=== PATIENT | female | born 1995 | race Caucasian/White ===

== ENCOUNTER 2016-05-19 13:58 | Emergency (ER) | payer OTHER ==
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
--- NOTE | 2016-05-19 15:46 | ED CLINICAL REPORT ---
Clinical Report - Physicians/Mid Levels [facility] [address] [place] [address] 05/19/2016 14:01 [id number] Time Seen: 15:00 May 19 2016. Arrived- By private vehicle. Historian- patient. HISTORY OF PRESENT ILLNESS Chief Complaint: Injury to the left foot. The injury happened just prior to arrival. Occurred at home. (respiratory arrival, wearing socks at home, patient dropped a piece of drywall, the corner of such onto her left foot, near her great toe, previous injuries to the foot and ankle, and surgical history.). REVIEW OF SYSTEMS The patient sustained a laceration. She complains of pain on weight bearing. All systems otherwise negative, except as recorded above. PAST HISTORY The patient has not had a prior injury to the same area. ADDITIONAL NOTES The nursing notes have been reviewed. PHYSICAL EXAM Appearance: Alert. No acute distress. Head: Head atraumatic. CVS: Normal heart rate and rhythm. Heart sounds normal. Respiratory: No respiratory distress. Breath sounds normal. Skin: Skin intact. Skin warm. (no abrasion/ lac). Extremities: Left foot web space: (proximal great toe). Left foot, plantar aspect. No tenderness or swelling. Left dorsal foot: mild tenderness. No swelling. Tip of left great toe: No tenderness or swelling. (no nail injury). No foot injury. No ankle injury. PROGRESS AND PROCEDURES PROCEDURES (post op shoe, left foot). Course of Care: no signs of underlying fx, no rash, ecchymosis, abrasion, good rom, no nail injury. Patient is stable. Patient/family counseled. Disposition: Discharged. CLINICAL IMPRESSION Contusion to the left foot. INSTRUCTIONS Apply ice. Elevate affected areas above chest level. You may walk and bear weight as tolerated. Prescription Medications: Motrin 800 mg tablets: take 1 tablet orally every 8 hours for 5 days, as needed for pain. Dispense fifteen (15). No refill. Substitution is permissible. Follow-up: Follow up with your doctor in three days. (Electronically signed by Ramona Heredia P.AFariba-May 05/19/2016 16:40)
--- NOTE | 2016-05-19 15:46 | ED CLINICAL REPORT ---
Clinical Report - Physicians/Mid Levels [facility] [address] [place] [address] 05/19/2016 14:01 [id number] Time Seen: 15:00 May 19 2016. Arrived- By private vehicle. Historian- patient. HISTORY OF PRESENT ILLNESS Chief Complaint: Injury to the left foot. The injury happened just prior to arrival. Occurred at home. (respiratory arrival, wearing socks at home, patient dropped a piece of drywall, the corner of such onto her left foot, near her great toe, previous injuries to the foot and ankle, and surgical history.). REVIEW OF SYSTEMS The patient sustained a laceration. She complains of pain on weight bearing. All systems otherwise negative, except as recorded above. PAST HISTORY The patient has not had a prior injury to the same area. ADDITIONAL NOTES The nursing notes have been reviewed. PHYSICAL EXAM Appearance: Alert. No acute distress. Head: Head atraumatic. CVS: Normal heart rate and rhythm. Heart sounds normal. Respiratory: No respiratory distress. Breath sounds normal. Skin: Skin intact. Skin warm. (no abrasion/ lac). Extremities: Left foot web space: (proximal great toe). Left foot, plantar aspect. No tenderness or swelling. Left dorsal foot: mild tenderness. No swelling. Tip of left great toe: No tenderness or swelling. (no nail injury). No foot injury. No ankle injury. PROGRESS AND PROCEDURES PROCEDURES (post op shoe, left foot). Course of Care: no signs of underlying fx, no rash, ecchymosis, abrasion, good rom, no nail injury. Patient is stable. Patient/family counseled. Disposition: Discharged. CLINICAL IMPRESSION Contusion to the left foot. INSTRUCTIONS Apply ice. Elevate affected areas above chest level. You may walk and bear weight as tolerated. Prescription Medications: Motrin 800 mg tablets: take 1 tablet orally every 8 hours for 5 days, as needed for pain. Dispense fifteen (15). No refill. Substitution is permissible. Follow-up: Follow up with your doctor in three days. (Electronically signed by Ramona Heredia P.AFariba-May 05/19/2016 16:40)
--- NOTE | 2016-05-19 15:46 | ED ORDER SUMMARY ---
..... Patient: VICENTE ALBARADO OrderSheet [facility] VisitID: [id number] [place] [address] 21y, F Registration Date/Time: 05/19/2016 ORDER SHEET Weight: 104.3 kg (stated) Allergies: No Known Drug Allergy GENERAL ORDERS: Foot 3V Left Urgent (14:59 05/19/2016 Steve P.A.-C) (Ack 15:00 NHouse ER Tech1) (16:00 Israel R.NFariba) Post-op Shoe (15:46 05/19/2016 Steve P.A.-C) (16:30 NHouse ER Tech1) MEDICATION ORDERS: IV FLUIDS: ORDER SHEET NOTES: [Electronically signed by Salena Stout R.N. (16:39 05/19/2016)] [Electronically signed by Ramona Heredia.AFariba-C (16:40 05/19/2016)] [Electronically locked/signed by Salena Stout R.N. (16:39 05/19/2016)]
--- NOTE | 2016-05-19 15:46 | ED ORDER SUMMARY ---
..... Patient: VICENTE ALBARADO OrderSheet [facility] VisitID: [id number] [place] [address] 21y, F Registration Date/Time: 05/19/2016 ORDER SHEET Weight: 104.3 kg (stated) Allergies: No Known Drug Allergy GENERAL ORDERS: Foot 3V Left Urgent (14:59 05/19/2016 Steve P.A.-C) (Ack 15:00 NHouse ER Tech1) (16:00 Israel R.NFariba) Post-op Shoe (15:46 05/19/2016 Steve P.A.-C) (16:30 NHouse ER Tech1) MEDICATION ORDERS: IV FLUIDS: ORDER SHEET NOTES: [Electronically signed by Salena Stout R.N. (16:39 05/19/2016)] [Electronically signed by Ramona Heredia.AFariba-C (16:40 05/19/2016)] [Electronically locked/signed by Salena Stout R.N. (16:39 05/19/2016)]
--- NOTE | 2016-05-19 16:40 | ED MED RECONCILIATION SUMMARY ---
Patient: VICENTE ALBARADO Medication Reconciliation Report [facility] VisitID: [id number] [place] [address] 21y, F Registration Date/Time: 05/19/2016 Weight: 104.3 kg Height/Length: 66 in. BMI: 37.1 ALLERGIES: No Known Drug Allergy The patient's Home Medications are listed below: NONE. The source(s) of the original Home Medication information: Not obtained. The following Medications were given to the patient in the Emergency Department: None. The following Medications were prescribed to the patient: Motrin 800 mg tablets: take 1 tablet orally every 8 hours for 5 days, as needed for pain. Dispense fifteen (15). No refill. Substitution is permissible. -- Ramona Heredia P.A.-C
--- NOTE | 2016-05-19 16:40 | ED MAR SUMMARY ---
..... Medication Administration Record [facility] [address] [place], [place] [id number] Patient: VICENTE ALBARADO Visit ID: [id number] 21y, F Weight: 104.3 kg Height/Length: 66 in BMI: 37.1 ALLERGIES: No Known Drug Allergy
--- NOTE | 2016-05-19 16:40 | ED MED RECONCILIATION SUMMARY ---
Patient: VICENTE ALBARADO Medication Reconciliation Report [facility] VisitID: [id number] [place] [address] 21y, F Registration Date/Time: 05/19/2016 Weight: 104.3 kg Height/Length: 66 in. BMI: 37.1 ALLERGIES: No Known Drug Allergy The patient's Home Medications are listed below: NONE. The source(s) of the original Home Medication information: Not obtained. The following Medications were given to the patient in the Emergency Department: None. The following Medications were prescribed to the patient: Motrin 800 mg tablets: take 1 tablet orally every 8 hours for 5 days, as needed for pain. Dispense fifteen (15). No refill. Substitution is permissible. -- Ramona Heredia P.A.-C
--- NOTE | 2016-05-19 16:40 | ED MAR SUMMARY ---
..... Medication Administration Record [facility] [address] [place], [place] [id number] Patient: VICENTE ALBARADO Visit ID: [id number] 21y, F Weight: 104.3 kg Height/Length: 66 in BMI: 37.1 ALLERGIES: No Known Drug Allergy
--- NOTE | 2016-05-19 16:40 | ED DISCHARGE INSTRUCTIONS ---
Patient: VICENTE ALBARADO General Instructions [facility] VisitID: [id number] [place] [address] 21y, F Registration Date/Time: 05/19/2016 Contusion to the left foot. INSTRUCTIONS Apply ice. Elevate affected areas above chest level. You may walk and bear weight as tolerated. Prescription Medications: Motrin 800 mg tablets: take 1 tablet orally every 8 hours for 5 days, as needed for pain. Dispense fifteen (15). No refill. Substitution is permissible. Follow-up: Follow up with your doctor in three days. ADDITIONAL INFORMATION Contusion: Foot You have a CONTUSION of your foot. This causes local pain, swelling and sometimes bruising. There are no broken bones. This injury may take from a few days to a few weeks to heal. Home Care: 1) Keep your LEG elevated to reduce pain and swelling. This is very important during the first 48 hours. If walking causes pain, stay off the injured leg until you can walk without pain. 2) If CRUTCHES have been advised, do not bear full weight on the injured leg until you can do so without pain. You may return to sports when you are able to hop and run on the injured leg without pain. 3) Make an ice pack (ice cubes in a plastic bag, wrapped in a towel) and apply for 20 minutes every 1-2 hours the first day. Continue this 3-4 times a day until the swelling goes down. 4) You may use acetaminophen (Tylenol) or ibuprofen (Motrin, Advil) to control pain, unless another pain medicine was prescribed. [ NOTE : If you have chronic liver or kidney disease or ever had a stomach ulcer or GI bleeding, talk with your doctor before using these medicines.] Follow Up with your doctor or this facility if you are not starting to improve within the next THREE days. [NOTE: If X-rays were taken, they will be reviewed by a radiologist. You will be notified of any new findings that may affect your care.] Get Prompt Medical Attention if any of the following occur: -- Pain or swelling increases -- Toes become cold, blue, numb or tingly -- Redness, warmth or drainage from the skin You have been given the following additional information: Contusion, Foot You may walk and bear weight as tolerated. (Electronically signed by Ramona Heredia P.A.-C 05/19/2016 16:40)
== END 2016-05-19 16:39 | disposition home or self-care (01) ==
LOC: ED SRH 13:58
DX: S90.32XA Contusion of left foot, initial encounter (principal); W20.8XXA Other cause of strike by thrown, projected or falling object, initial encounter; Y93.89 Activity, other specified; Y92.009 Unspecified place in unspecified non-institutional (private) residence as the place of occurrence of the external cause; Y99.9 Unspecified external cause status